=== PATIENT | male | born 1950 | race Two or more races ===

== ENCOUNTER 2019-05-20 20:10 | Emergency (ER) | payer OTHER ==
[~2019-05-20] VITALS: Ht 167.6 cm; Wt 72.6 kg
[2019-05-20] MEDS ORDERED: PRILOSEC10 MG (20:23)
[2019-05-21] MEDS ORDERED: KETO10TA2 PO (01:31)
== END 2019-05-21 01:45 | disposition home or self-care (01) ==
LOC: ER 20:10
DX: N20.1 Calculus of ureter (principal); R10.31 Right lower quadrant pain

== ENCOUNTER 2020-12-29 07:12 | Outpatient (CLI) | payer OTHER ==
[~2020-12-29 07:12] MED LIST: KETO10TA2 PO; PRILOSEC10 MG
== END 2020-12-29 07:19 | disposition home or self-care (01) ==
LOC: TOM 07:12
PROVIDERS: ATTEND Internal Medicine
DX: K63.5 Polyp of colon (principal)

== ENCOUNTER 2021-07-17 03:32 | Emergency (ER) | payer OTHER ==
[~2021-07-17] VITALS: Ht 152.4 cm; Wt 68.0 kg
[2021-07-17] MEDS ORDERED: PANTOPRAZOLE SO40 MG (03:56)
[2021-07-17] MEDS ORDERED: LEVSIN/SL0.125 MG SL (08:41)
[2021-07-17] MEDS ORDERED: PROTONIX40 MG PO (08:41)
[2021-07-17] MEDS ORDERED: ZOFRAN8 MG PO (08:41)
== END 2021-07-17 09:04 ==
LOC: ER 03:32
DX: R10.13 Epigastric pain (principal)

== ENCOUNTER 2023-05-29 10:16 | Emergency (ER) | payer OTHER ==
[~2023-05-29] VITALS: Ht 167.6 cm; Wt 68.0 kg
[~2023-05-29 10:16] MED LIST changes: +LEVSIN/SL0.125 MG SL; +PANTOPRAZOLE SO40 MG; +PROTONIX40 MG PO; +ZOFRAN8 MG PO
[2023-05-29] MEDS ORDERED: METFORMIN HCL500 M4 PO (10:40)
[2023-05-29] MEDS ORDERED: PLAVIX75 MG PO (10:41)
== END 2023-05-29 14:10 | disposition home or self-care (01) ==
LOC: ER 10:16
DX: H60.91 Unspecified otitis externa, right ear (principal)

== ENCOUNTER 2024-12-04 05:55 | Inpatient (IN) | payer OTHER ==
[~2024-12-04] VITALS: Ht 162.6 cm; Wt 68.0 kg
[~2024-12-04 05:55] MED LIST changes: +METFORMIN HCL500 M4 PO; +PLAVIX75 MG PO
[2024-12-04] MEDS ORDERED: JARDIANCE10 MG PO (06:24)
[2024-12-04] MEDS ORDERED: SOLU-MEDRO40 MG/1 ML IJ (06:25)
[2024-12-04] MEDS ORDERED: PANTOPRAZOLE SO40 MG PO (06:25)
[2024-12-04] MEDS ORDERED: MORPHINE SULFATE 4 MG/ML VIAL IV STA (07:12)
[2024-12-04] MEDS ORDERED: 0.9 % SODIUM CHLORIDE 1,000 ML IV STA (07:12)
[2024-12-04 07:52] LABS: HEMATOCRIT 48.1 % (39.0-48.0); HEMOGLOBIN 16.3 g/dL (13-16.00); MEAN CELL VOLUME 91.9 fL (80.0-100.00); MEAN CORPUSCULAR HEMOGLOBIN 31.2 pg (27.00-32.0); PLATELET COUNT 203 K/uL (150-450); RED BLOOD COUNT 5.23 M/uL (4.00-6.00); RED CELL DISTRIBUTION WIDTH 13.4 % (11.5-14.5)
[2024-12-04 08:25] LABS: ALBUMIN 4.3 gm/dL (3.4-5.0); BILIRUBIN TOTAL 1.43 mg/dL (0.3-1.2); CALCIUM 9.4 mg/dL (8.5-10.1); CREATININE SERUM 0.9 mg/dL (0.70-1.30); GFR 82.49; GLOBULINA 3.4 G/DL (2.4-3.5); POTASSIUM 3.99 mEq/L (3.5-5.1); TOTAL PROTEIN 7.7 gm/dL (6.4-8.2)
[2024-12-04 09:53] LABS: INR 1.17; PROTHROMBIN TIME 12.6 SECONDS (9.0-11.5)
[2024-12-04] MEDS ORDERED: LORazepam 2 MG/ML VIAL IV ONE (11:00)
[2024-12-04] MEDS ORDERED: PANTOPRAZOLE SODIUM 40 MG in 0.9 % SODIUM CHLORIDE 8 ML IV PUSH SCH (13:14)
[2024-12-04] MEDS ORDERED: ACETAMINOPHEN 325 MG TABLET PO PRN (13:15)
[2024-12-04] MEDS ORDERED: 0.9 % SODIUM CHLORIDE 1,000 ML IV SCH (13:15)
[2024-12-04] MEDS ORDERED: MORPHINE SULFATE 4 MG/ML CARTRIDGE IV PRN (13:15)
[2024-12-04] MEDS ORDERED: INSULIN LISPRO 1,000 UNIT/10 ML UNITS SUBCUTANEO PRN (13:15)
[2024-12-04] MEDS ORDERED: METRONIDAZOLE/SODIUM CHLORIDE 500 MG/100 ML PIGGYBACK IV SCH (13:15)
[2024-12-04] MEDS ORDERED: CIPROFLOXACIN IN 5 % DEXTROSE 400 MG/200 ML PIGGYBAG IV SCH (13:15)
[2024-12-04] MEDS ORDERED: DEXTROSE 50 % IN WATER 0.5 G/ML DISP.SYRIN IV PRN (13:15)
[2024-12-04 14:46] LABS: CHOL HDL RATIO 3.3 (0-5.0)
[2024-12-04 16:06] VITALS: BP 124/66; O2SAT 97
[2024-12-04 17:55] VITALS: BP 134/72; O2SAT 97
[2024-12-05 02:07] VITALS: BP 110/66; O2SAT 95
[2024-12-05 06:13] LABS: HEMATOCRIT 44.4 % (39.0-48.0); HEMOGLOBIN 15.2 g/dL (13-16.00); MEAN CELL VOLUME 91.4 fL (80.0-100.00); MEAN CORPUSCULAR HEMOGLOBIN 31.3 pg (27.00-32.0); MEAN CORPUSCULAR HGB CONC 34.2 g/dl (32.0-36.0); RED BLOOD COUNT 4.86 M/uL (4.00-6.00); RED CELL DISTRIBUTION WIDTH 13.1 % (11.5-14.5)
[2024-12-05 06:42] LABS: PLATELET COUNT 130 K/uL (150-450)
[2024-12-05 07:00] LABS: ALBUMIN 3.7 gm/dL (3.4-5.0); BILIRUBIN TOTAL 1.52 mg/dL (0.3-1.2); CALCIUM 8.8 mg/dL (8.5-10.1); CREATININE SERUM 0.76 mg/dL (0.70-1.30); GFR 100.26; GLOBULINA 2.9 G/DL (2.4-3.5); MAGNESIUM 2.1 mg/dL (1.8-2.4); PHOSPHOROUS 3.4 mg/dL (2.5-4.9); POTASSIUM 4.6 mEq/L (3.5-5.1); TOTAL PROTEIN 6.6 gm/dL (6.4-8.2)
[2024-12-05 08:42] VITALS: BP 112/67; O2SAT 98
[2024-12-05] MEDS ORDERED: DEXTROSE 5 % AND 0.9 % NACL 1,000 ML IV SCH (11:45)
[2024-12-05] MEDS ORDERED: MEPERIDINE HCL 25 MG/ML AMPUL IV PRN (14:15)
[2024-12-05 17:23] VITALS: BP 118/67; O2SAT 94
[2024-12-06 02:05] VITALS: BP 105/62; O2SAT 95
[2024-12-06 08:00] VITALS: BP 114/68; O2SAT 96
[2024-12-06 11:33] LABS: HEMOGLOBIN 14.8 g/dL (13-16.00); MEAN CELL VOLUME 89.6 fL (80.0-100.00); MEAN CORPUSCULAR HEMOGLOBIN 31.5 pg (27.00-32.0); MEAN CORPUSCULAR HGB CONC 35.2 g/dl (32.0-36.0); RED BLOOD COUNT 4.68 M/uL (4.00-6.00); RED CELL DISTRIBUTION WIDTH 13.2 % (11.5-14.5)
[2024-12-06 11:40] LABS: PLATELET COUNT 121 K/uL (150-450)
[2024-12-06 12:18] LABS: ALBUMIN 3.3 gm/dL (3.4-5.0); BILIRUBIN TOTAL 1.22 mg/dL (0.3-1.2); BILIRUBIN,CONJUGATED 0.29 mg/dL (0.0-0.2); BILIRUBIN,UNCONJUGATED 0.93 mg/dL (0.0-0.6)
[2024-12-06 15:40] VITALS: BP 143/63
[2024-12-07 03:31] VITALS: BP 114/71; O2SAT 97
[2024-12-07 08:43] VITALS: BP 116/70; O2SAT 97
[2024-12-07] MEDS ORDERED: fentaNYL CITRATE 50 MCG/ML AMPUL IV ONE (12:15)
[2024-12-07] MEDS ORDERED: MIDAZOLAM HCL 2 MG/2 ML VIAL IV ONE (12:15)
[2024-12-07 16:57] VITALS: BP 118/61
[2024-12-11 21:04] LABS: igg 744 mg/dL (603-1613); igg 1 372 mg/dL (248-810); igg 2 198 mg/dL (130-555); igg 3 26 mg/dL (15-102); igg 4 18 mg/dL (2-96)
== END 2024-12-07 19:18 | disposition home or self-care (01) | DRG 439 ==
LOC: ER 05:58 → SEC-K 13:30 → MEDI 13:30
PROVIDERS: General Practice; Internal Medicine Gastroenterology; ADMIT Internal Medicine; ATTEND Internal Medicine
PROC: BW40ZZZ Ultrasonography of Abdomen (ICD-10-PCS; 2024-12-04)
PROC: BF37ZZZ Magnetic Resonance Imaging (MRI) of Pancreas (ICD-10-PCS; 2024-12-04)
PROC: BW21YZZ Computerized Tomography (CT Scan) of Abdomen and Pelvis using Other Contrast (ICD-10-PCS; 2024-12-05)
PROC: 0DB68ZX Excision of Stomach, Via Natural or Artificial Opening Endoscopic, Diagnostic (ICD-10-PCS; principal; 2024-12-07)
PROC: 0DB78ZX Excision of Stomach, Pylorus, Via Natural or Artificial Opening Endoscopic, Diagnostic (ICD-10-PCS; 2024-12-07)
DX: K85.90 Acute pancreatitis without necrosis or infection, unspecified (principal); K90.49 Malabsorption due to intolerance, not elsewhere classified; K29.70 Gastritis, unspecified, without bleeding; E86.0 Dehydration; I10 Essential (primary) hypertension

== ENCOUNTER → 2025-02-27 07:22 | Outpatient (CLI) | payer OTHER ==
[~2025-02-27 07:22] MED LIST changes: +JARDIANCE10 MG PO; +PANTOPRAZOLE SO40 MG PO; +SOLU-MEDRO40 MG/1 ML IJ
== END | disposition home or self-care (01) ==
LOC: NUCLEAR 06:15
PROVIDERS: ATTEND Internal Medicine Hematology & Oncology
DX: C22.0 Liver cell carcinoma (principal); C79.51 Secondary malignant neoplasm of bone
CPT/HCPCS: 78306; A9503